=== PATIENT | female | born 1950 | race Caucasian/White ===

== ENCOUNTER → 2018-03-23 12:23 | Outpatient (CLI) | payer MEDICARE, OTHER, SELFPAY ==
--- NOTE | 2018-03-23 | DI.MG.S_ITS ---
BILATERAL DIGITAL SCREENING MAMMOGRAM 3D/2D WITH CAD: 03/23/2018 CLINICAL: Routine screening. Family history of breast cancer. Comparison is made to exams dated: 02/25/2017 mammogram, 10/26/2015 mammogram, and 10/14/2014 mammogram - [facility]. The tissue of both breasts is heterogeneously dense. This may lower the sensitivity of mammography. Current study was also evaluated with a Computer Aided Detection (CAD) system. No significant masses, calcifications, or other findings are seen in either breast. There has been no significant interval change. IMPRESSION: NEGATIVE There is no mammographic evidence of malignancy. A 1 year screening mammogram is recommended. This exam was interpreted at Station ID: [id number]. NOTE: For mammograms, a report in lay terms will be sent to the patient. Approximately 15% of breast malignancies will not be visualized mammographically. In the management of a palpable breast mass, a negative mammogram must not discourage biopsy of a clinically suspicious lesion. Electronically Signed By: Mary Jo denney/ramiro:03/23/2018 13:52:59 letter sent: Normal Exam ACR BI-RADS Category 1: Negative 3341F
== END ==
PROVIDERS: Visit Provider Family Medicine
DX: Z12.31 Encounter for screening mammogram for malignant neoplasm of breast (principal); Z80.3 Family history of malignant neoplasm of breast
CPT/HCPCS: 77063; 77067

== ENCOUNTER → 2018-06-11 12:25 | Outpatient (CLI) | payer MEDICARE, OTHER, SELFPAY ==
[2018-06-11 13:08] LABS: Blood Urea Nitrogen 15 mg/dL (7-17); Estimated Glomerular Filt Rate > 60.0 mL/min (>60)
== END ==
PROVIDERS: Family Provider Family Medicine; PCP Family Medicine; Visit Provider Internal Medicine Endocrinology, Diabetes & Metabolism
DX: E23.2 Diabetes insipidus (principal); E27.49 Other adrenocortical insufficiency
CPT/HCPCS: 36415; 82565; 84520

== ENCOUNTER → 2018-06-16 13:14 | Outpatient (CLI) | payer MEDICARE, OTHER, SELFPAY ==
--- NOTE | 2018-06-16 | DI.MRI.S_ITS ---
PROCEDURE: MR FOREARM LT WO/W CON INDICATIONS: pain in left arm TECHNIQUE: Noncontrast coronal T1 spin echo and STIR, sagittal T1 spin echo with fat saturation and STIR, axial T1 spin echo and T2 fast spin echo with fat saturation. After the administration of contrast, axial/sagittal/coronal T1 spin echo with fat saturation through the left forearm. COMPARISON: None. FINDINGS: Image quality: Diagnostic. Bones: The visualized bone marrow demonstrates normal signal on all sequences. The overlying cortex appears intact. No abnormal intraosseous enhancement. Soft tissues: On the medial aspect of the left upper arm subcutaneous tissues, there is an avidly enhancing lesion identified that measures 2.0 x 2.4 x 1.7 cm, which may be contiguous with adjacent neurovascular structures. No additional enhancing lesions are evident. No loculated fluid collections or significant soft tissue edema is present. The imaged muscles of the left upper extremity demonstrate no significant atrophy or edema. The included tendons are grossly unremarkable, but not well characterized on this study. IMPRESSION: 1. Avidly enhancing mass along the medial aspect of the lower aspect of the left upper arm, most likely represents a neuroma. A vascular malformation may also have this appearance. An ultrasound is recommended for further evaluation. 2. No additional bony or soft tissue lesions. Dictated by: Alin Wilburn M.D. on 06/16/2018 at 17:08 Approved by: Alin Wilburn M.D. on 06/16/2018 at 17:13
== END ==
PROVIDERS: Family Provider Family Medicine; PCP Family Medicine; Visit Provider Internal Medicine Endocrinology, Diabetes & Metabolism
DX: M79.602 Pain in left arm (principal); R22.32 Localized swelling, mass and lump, left upper limb; M85.852 Other specified disorders of bone density and structure, left thigh; Z78.0 Asymptomatic menopausal state; E07.9 Disorder of thyroid, unspecified; Z85.858 Personal history of malignant neoplasm of other endocrine glands
CPT/HCPCS: 73220; 77080; A9579

== ENCOUNTER → 2021-03-22 16:14 | Outpatient (CLI) | payer MEDICARE, OTHER, SELFPAY ==
--- NOTE | 2021-03-22 | DI.MG.S_ITS ---
BILATERAL DIGITAL SCREENING MAMMOGRAM 3D/2D WITH CAD: 03/22/2021 CLINICAL: Routine screening. Family history of breast cancer. Comparison is made to exams dated: 03/23/2018 mammogram, 02/25/2017 mammogram, and 10/26/2015 mammogram - [facility]. The tissue of both breasts is heterogeneously dense. This may lower the sensitivity of mammography. Current study was also evaluated with a Computer Aided Detection (CAD) system. No significant masses, calcifications, or other findings are seen in either breast. There has been no significant interval change. IMPRESSION: NEGATIVE There is no mammographic evidence of malignancy. A 1 year screening mammogram is recommended. This exam was interpreted at Station ID: [id number]. NOTE: For mammograms, a report in lay terms will be sent to the patient. Approximately 15% of breast malignancies will not be visualized mammographically. In the management of a palpable breast mass, a negative mammogram must not discourage biopsy of a clinically suspicious lesion. Electronically Signed By: Crispin martins/ramiro:03/22/2021 16:47:28 letter sent: Normal Exam ACR BI-RADS Category 1: Negative 3341F
== END ==
PROVIDERS: Family Provider Family Medicine; PCP Family Medicine; Referring Provider Family Medicine; Visit Provider Family Medicine
DX: Z12.31 Encounter for screening mammogram for malignant neoplasm of breast (principal); Z80.3 Family history of malignant neoplasm of breast
CPT/HCPCS: 77063; 77067

== ENCOUNTER → 2021-04-26 07:40 | Outpatient (CLI) | payer MEDICARE, OTHER, SELFPAY ==
--- NOTE | 2021-04-26 07:44 | DI.US.S_ITS ---
PROCEDURE: US PERIPH VENOUS LOW EXTREM LT INDICATIONS: FOLLOW-UP GASTROCNEMIUS THROMBUS TECHNIQUE: Real-time imaging, as well as color and pulse Doppler interrogation, were performed of the lower extremity deep veins from the inguinal ligament to the popliteal fossa. COMPARISON: Outside Facility, RG, US PERIPHERAL VENOUS LOWER EXT LT, 01/29/2021, 20:43. FINDINGS: The common femoral, femoral and popliteal veins are normally compressible, and free of intraluminal thrombus. Color and pulse Doppler demonstrate normal phasic intraluminal flow. There is normal augmentation response to distal compression maneuver. Previously described thrombus within the left gastrocnemius intramuscular vein not seen on the current study. IMPRESSION: No evidence of deep venous thrombosis. Previous thrombus seen in the left gastrocnemius intramuscular veins no longer identified. Dictated by: Roberto Saul M.D. on 04/26/2021 at 15:15 Approved by: Roberto Saul M.D. on 04/26/2021 at 15:17
== END ==
PROVIDERS: Family Provider Family Medicine; PCP Family Medicine; Referring Provider Nurse Practitioner Family; Visit Provider Nurse Practitioner Family
DX: I82.462 Acute embolism and thrombosis of left calf muscular vein (principal)
CPT/HCPCS: 93971

== ENCOUNTER → 2022-05-15 08:04 | Outpatient (CLI) | payer MEDICARE, OTHER, SELFPAY ==
--- NOTE | 2022-05-15 | DI.MG.S_ITS ---
BILATERAL DIGITAL SCREENING MAMMOGRAM 3D/2D WITH CAD: 05/15/2022 CLINICAL: Routine screening. Family history of breast cancer. Comparison is made to exams dated: 03/22/2021 mammogram, 03/23/2018 mammogram, 02/25/2017 mammogram, and 10/26/2015 mammogram - [facility]. There are scattered areas of fibroglandular density in both breasts (category b / 25%-50% glandular tissue). Current study was also evaluated with a Computer Aided Detection (CAD) system. No significant masses, calcifications, or other findings are seen in either breast. There has been no significant interval change. IMPRESSION: NEGATIVE There is no mammographic evidence of malignancy. A 1 year screening mammogram is recommended. Based on the Tyrer Cuzick model (a risk assessment model) the patient's lifetime risk is 7.4% and her 10 year risk is 5.5%. According to the ACR, ACS, and NCCN guidelines, an annual breast MRI exam along with mammogram is recommended if the patient's lifetime risk is 20% or greater. This exam was interpreted at Station ID: [id number]. NOTE: For mammograms, a report in lay terms will be sent to the patient. Approximately 15% of breast malignancies will not be visualized mammographically. In the management of a palpable breast mass, a negative mammogram must not discourage biopsy of a clinically suspicious lesion. Electronically Signed By: Michael davey/ramiro:05/15/2022 15:57:36 letter sent: Normal Exam ACR BI-RADS Category 1: Negative 3341F
== END ==
PROVIDERS: Family Provider Family Medicine; PCP Nurse Practitioner Family; Referring Provider Internal Medicine Hematology & Oncology; Visit Provider Internal Medicine Hematology & Oncology
DX: Z12.31 Encounter for screening mammogram for malignant neoplasm of breast (principal); Z80.3 Family history of malignant neoplasm of breast
CPT/HCPCS: 77063; 77067

== ENCOUNTER → 2022-09-19 10:59 | Outpatient (CLI) | payer MEDICARE, OTHER, SELFPAY ==
[2022-09-19 12:28] LABS: Alanine Aminotransferase 26 IU/L (<35); Albumin 3.7 g/dL (3.5-5.0); Albumin Globulin Ratio 1.5 (1.0-2.8); Alkaline Phosphatase 76 U/L (38-126); Aspartate Aminotransferase 25 IU/L (14-36); BUN Creatinine Ratio 30.5 (6-22); Bilirubin Total 0.5 mg/dL (0.2-1.3); Blood Urea Nitrogen 18 mg/dL (7-17); Calcium 8.6 mg/dL (8.4-10.2); Carbon Dioxide 32 mmol/L (22-32); Chloride 100 mmol/L (98-107); Estimated Glomerular Filt Rate > 60 mL/min (>60); Globulin 2.5 g/dL (1.7-4.1); Glucose 87 mg/dL (80-110); HEMOLYSIS < 15 (0-50); Potassium 4.2 mmol/L (3.4-5.1); Sodium 136 mmol/L (137-145); Total Protein 6.2 g/dL (6.3-8.2)
[2022-09-20 14:46] LABS: Osmolality, Serum 289 mOsmol/kg (280-301)
[2022-09-21 08:07] LABS: Adrenocorticotropic Hormone >2000.0 pg/mL (7.2-63.3)
== END ==
PROVIDERS: Family Provider Family Medicine; PCP Nurse Practitioner Family; Referring Provider Internal Medicine Endocrinology, Diabetes & Metabolism; Visit Provider Internal Medicine Endocrinology, Diabetes & Metabolism
DX: E87.1 Hypo-osmolality and hyponatremia (principal); E24.9 Cushing's syndrome, unspecified; C75.1 Malignant neoplasm of pituitary gland; E27.1 Primary adrenocortical insufficiency; E23.0 Hypopituitarism
CPT/HCPCS: 36415; 80053; 80069; 82024; 83930; 84439

== ENCOUNTER 2022-11-29 10:43 | Emergency (ER) | payer MEDICARE, OTHER, SELFPAY ==
[2022-11-29 10:50] VITALS: BP 164/77; PULSE 67; RESP 16; TEMP 36.9; O2SAT 99; BMI 24.3
--- NOTE | 2022-11-29 11:23 | ED.WOUNDLAC ---
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 Patient states no vision on the left eye. Patient presents with complaint of skin tear to the left forearm. Patient states it has been more than 5 years since her last tetanus. She was not home walking and scraped her skin crossed piece of furniture the house and developed skin tear. No falls or other injuries. This occurred 5 days ago. Patient brought by has been he has been washing it putting on a small amount of Aquaphor daily but was concerned because it had healed. Patient has not had any other injuries no redness, drainage or swelling in his surrounding site. No other skin tears noted. Reports no known drug allergies. No tobacco, alcohol or illicit. She lives on [address] with her . Related Data Home Medications Medication Instructions Recorded Confirmed levothyroxine 125 mcg tablet 125 mcg DAILY ##0 01/03/12 01/27/18 (Synthroid) pitavastatin calcium 2 mg tablet 2 mg PO ##0 09/19/16 01/27/18 (Livalo) vitamin B complex (B 1 tab PO QDAY ##0 02/14/17 01/27/18 Complex-Vitamin B12 tablet) estradiol 0.05 mg/24 hr weekly 1 patch transdermal QWEEK 01/27/18 01/27/18 transdermal patch liothyronine 5 mcg tablet 5 mcg PO TID 01/27/18 01/27/18 Previous Rx's Medication Instructions Recorded prednisone 5 mg tablet 5 mg PO 0800 ##90 11/09/12 medroxyprogesterone 10 mg tablet See Rx Instructions .Route 11/10/19 .COMPLEX #90 tabs Allergies Allergy/AdvReac Type Severity Reaction Status Date / Time No Known Drug Allergies Allergy Unverified 01/27/18 10:15 Review of Systems Review of Systems ROS Unobtainable: All systems reviewed & are unremarkable except as noted in HPI and below Patient History Medical History Gueydan's disease Craniopharyngioma Surgical History Status post craniotomy (1974) Status post surgery (12/27/13) Social History marital status: Smoking Status: Never smoker alcohol intake: current Smoking Status: Never smoker Exam Narrative Exam Narrative: GENERAL: Alert and oriented x three, female in mild distress. HEENT: Head normocephalic, atraumatic, EOMI on right, eyelid droop on left (baseline per patient) pupils reactive, face symmetric, moist mucous membranes NECK: Supple, full range of motion CARDIOVASCULAR: Regular rate and rhythm without murmurs, rubs or gallops. RESPIRATORY: Breath sounds equal bilaterally, no wheezes rales or rhonchi. ABDOMEN: Soft, nontender. Normoactive bowel sounds all 4 quadrants. No guarding or rebound, rigidity, no mass : No CVA tenderness EXTREMITIES: Normal range of motion, no clubbing or edema. Neurovascularly intact NEUROLOGICAL: Cranial nerves II through XII grossly intact. Moving all extremities SKIN: Warm, dry, no petechiae, no rashes. Patient has a 2 cm irregular skin tear there is a small amount of very dried skin adjacent edge which was trimmed off with 11 blade. Area is without warmth, erythema or drainage. Patient has good pink tissue underneath with no signs of infection. Patient does have small areas of ecchymosis on her upper extremities bilaterally. Initial Vital Signs Initial Vital Signs: Vital Signs Temperature 98.4 F 11/29/22 10:50 Pulse Rate 67 11/29/22 10:50 Respiratory Rate 16 11/29/22 10:50 Blood Pressure 164/77 H 11/29/22 10:50 Pulse Oximetry 99 11/29/22 10:50 Oxygen Delivery Method Room Air 11/29/22 10:50 Course Orders Ordered: Discontinued Medications Diphtheria/Tetanus/Acell Pertussis (Tet,Diph,Pertuss(Acell),Vac/Pf 0.5 Ml Syringe) 0.5 ml IM .ONCE ONE Stop: 11/29/22 11:37 Last Admin: 11/29/22 11:39 Dose: 0.5 ml Documented By: CTS Vital Signs Vital signs: Vital Signs - 8 hr 11/29/22 10:50 Temperature 98.4 F Pulse Rate 67 Respiratory Rate 16 Blood Pressure 164/77 H Pulse Oximetry 99 Oxygen Delivery Method Room Air MDM - Wound/Laceration MDM Narrative Medical decision making narrative: This is a 72-year-old female with reported skin tear that is approximately 5-day-old appears without infection, slow to heal according to the but looks very appropriate today. We discussed wound care, options for nonstick coverage versus other care options and close monitoring. Patient does have risk for potential increased infection and slower wound healing with her history of being steroid dependent. Discussed return precautions. Patient and both state she has not had a tetanus in his last 5 years so this was updated today. Discharge Plan Departure Patient Disposition: Home Clinical Impression: Skin tear of forearm without complication Activity Restrictions/Additional Instructions: Please follow-up if your wound is not starting to heal over the next 7-10 days. Will likely take 2 or 3 weeks to fully heal. Wound Care: Keep wound(s) clean and dry. Wash daily with soap and water only and pat dry. Do not use over the counter products (alcohol or peroxide)on the wounds unless instructed by a physician. You can use a small amount of Aquaphor or triple antibiotic ointment to the affected area once daily Use a non-stick bandage to the affected area. If wound condition worsens (increased/expanding redness, developing fluid blisters, or worsening pain), either contact your doctor for an urgent re-assessment , or return to the Emergency Department. Return to the Emergency Department for any new or worsening symptoms. Return if fever greater than 100.4 Fahrenheit, increased swelling, increasing pain or worsening symptoms such as increased discharge or spreading redness. Prescriptions: No Action levothyroxine [Synthroid] 125 MCG tablet 125 mcg DAILY Qty: 0 prednisone 5 MG tablet 5 mg PO 0800 Qty: 90 1RF pitavastatin calcium [Livalo] 2 MG tablet 2 mg PO Qty: 0 vitamin B complex [B Complex-Vitamin B12] 1 EACH tablet 1 tab PO QDAY Qty: 0 medroxyprogesterone 10 mg tablet See Rx Instructions .ROUTE .COMPLEX Qty: 90 3RF Dose Instruction: TAKE 1 TABLET DAILY Rx Instructions: TAKE 1 TABLET DAILY liothyronine 5 mcg tablet 5 mcg PO TID estradiol 0.05 mg/24 hr patch weekly 1 patch Transdermal QWEEK Referrals: Becki Weston ARNP [Primary Care Provider] - Stand Alone Forms: Patient Portal/API
[2022-11-29] MEDS: TET,DIPH,PERTUSS(ACELL),VAC/PF 0.5 ML SYRINGE IM (11:39)
== END 2022-11-29 11:41 | disposition home or self-care (01) ==
PROVIDERS: Emergency Provider Emergency Medicine; Family Provider Family Medicine; PCP Nurse Practitioner Family
DX: S41.112A Laceration without foreign body of left upper arm, initial encounter (principal); W26.9XXA Contact with unspecified sharp object(s), initial encounter; Z23 Encounter for immunization
CPT/HCPCS: 90471; 99283; 90715

== ENCOUNTER → 2023-07-14 09:42 | Outpatient (CLI) | payer MEDICARE, OTHER, SELFPAY ==
--- NOTE | 2023-07-14 09:43 | DI.US.S_ITS ---
LIMITED ULTRASOUND OF LEFT BREAST AND AXILLA: 07/14/2023 CLINICAL: Palpable left breast lump. Comparison is made to exams dated: 07/14/2023 mammogram, 05/15/2022 mammogram, 03/22/2021 mammogram, and 03/23/2018 mammogram - [facility]. Color flow ultrasound of the left breast axilla was performed on the areas of interest. Culver scale images of the real-time examination were reviewed. There is an oval lipoma in the left breast at 12 o'clock posterior depth. This oval lipoma is hypoechoic. This correlates as palpated. Color flow imaging demonstrates that there is no vascularity present. IMPRESSION: BENIGN There is no sonographic evidence of malignancy. The oval lipoma in the left breast is benign. Return to annual mammogram screening schedule is recommended. This exam was interpreted at Station ID: [id number]. Electronically Signed By: Mary Jo denney/:07/14/2023 11:05:53 letter sent: Normal Exam Ultrasound BI-RADS: 2 Benign
--- NOTE | 2023-07-14 09:43 | DI.MG.S_ITS ---
BILATERAL DIGITAL DIAGNOSTIC MAMMOGRAM 3D/2D: 07/14/2023 CLINICAL: Mass in the left breast. Comparison is made to exams dated: 05/15/2022 mammogram, 03/22/2021 mammogram, and 03/23/2018 mammogram - [facility]. There are scattered areas of fibroglandular density in both breasts (category b / 25%-50% glandular tissue). No significant masses, calcifications, or other findings are seen in either breast. IMPRESSION: INCOMPLETE: NEEDS ADDITIONAL IMAGING EVALUATION There is no mammographic abnormality seen in the left breast to correspond with the palpable abnormality, however, a targeted ultrasound of the left breast is recommended and will be performed immediately following this exam. Based on the Tyrer Cuzick model (a risk assessment model) the patient's lifetime risk is 7.0% and her 10 year risk is 5.7%. According to the ACR, ACS, and NCCN guidelines, an annual breast MRI exam along with mammogram is recommended if the patient's lifetime risk is 20% or greater. This exam was interpreted at Station ID: [id number]. NOTE: For mammograms, a report in lay terms will be sent to the patient. Approximately 15% of breast malignancies will not be visualized mammographically. In the management of a palpable breast mass, a negative mammogram must not discourage biopsy of a clinically suspicious lesion. Electronically Signed By: Mary Jo denney/:07/14/2023 10:49:00 ACR BI-RADS Category 0: Incomplete 3340F
== END ==
LOC: MAMMO 09:43
PROVIDERS: Family Provider Family Medicine; PCP Family Medicine; Referring Provider Nurse Practitioner; Visit Provider Nurse Practitioner
DX: R92.2 Inconclusive mammogram (principal); D17.39 Benign lipomatous neoplasm of skin and subcutaneous tissue of other sites; R92.323 Mammographic fibroglandular density, bilateral breasts; N63.20 Unspecified lump in the left breast, unspecified quadrant; N64.9 Disorder of breast, unspecified
CPT/HCPCS: 76642; 77066; G0279

== ENCOUNTER → 2024-06-30 11:28 | Outpatient (CLI) | payer MEDICARE, OTHER, SELFPAY ==
--- NOTE | 2024-06-30 11:30 | DI.MG.S_ITS ---
BILATERAL DIGITAL SCREENING MAMMOGRAM 3D/2D WITH CAD: 06/30/2024 CLINICAL: Routine screening. Family history of breast cancer. Comparison is made to exams dated: 07/14/2023 mammogram, 05/15/2022 mammogram, and 03/22/2021 mammogram - [facility]. There are scattered areas of fibroglandular density (category b / 25%-50% glandular tissue). Current study was also evaluated with a Computer Aided Detection (CAD) system. There are benign post operative findings in the left breast. No significant masses, calcifications, or other findings are seen in either breast. There has been no significant interval change. IMPRESSION: BENIGN There is no mammographic evidence of malignancy. A 1 year screening mammogram is recommended. Based on the Tyrer Cuzick model (a risk assessment model) the patient's lifetime risk is 6.5% and her 10 year risk is 5.9%. According to the ACR, ACS, and NCCN guidelines, an annual breast MRI exam along with mammogram is recommended if the patient's lifetime risk is 20% or greater. This exam was interpreted at Station ID: [id number]. NOTE: For mammograms, a report in lay terms will be sent to the patient. Approximately 15% of breast malignancies will not be visualized mammographically. In the management of a palpable breast mass, a negative mammogram must not discourage biopsy of a clinically suspicious lesion. Electronically Signed By: Steve hannon/ramiro:06/30/2024 18:45:39 letter sent: Normal Exam ACR BI-RADS Category 2: Benign
== END ==
PROVIDERS: Family Provider Family Medicine; PCP Family Medicine; Referring Provider Family Medicine; Visit Provider Family Medicine
DX: Z12.31 Encounter for screening mammogram for malignant neoplasm of breast (principal); Z80.3 Family history of malignant neoplasm of breast
CPT/HCPCS: 77063; 77067

== ENCOUNTER → 2025-03-23 11:45 | Outpatient (CLI) | payer MEDICARE, OTHER, SELFPAY | PROVIDERS: Family Provider Family Medicine; PCP Physician Assistant; Visit Provider Physician Assistant | DX: S81.819A Laceration without foreign body, unspecified lower leg, initial encounter (principal) | CPT/HCPCS: 87070; 87075; 87205 ==